=== PATIENT | female | born 1980 | race Caucasian/White ===

== ENCOUNTER 2024-04-17 18:39 | Emergency (ER) | payer OTHER, SELFPAY ==
--- NOTE | ~2024-04-17 | XR_ITS ---
CLINICAL HISTORY: pain 4 view left knee Comparison: None Findings: No fractures or dislocations. No significant loss of joint space, osteophytes, or erosions. No joint effusion. No radiopaque foreign body. IMPRESSION: 1. No acute findings. This document has been electronically signed by: Lashawn Carranza MD on 04/17/2024 21:20:47
[2024-04-17 19:55] VITALS: BP 138/64; PULSE 77; RESP 18; TEMP 36.6; O2SAT 100; BMI 37.6
--- NOTE | 2024-04-17 19:57 | ED_ITS ---
HPI - Extremity Problem General Chief complaint: Extremity Problem Stated complaint: L knee pain & swollen Time Seen by Provider: 04/17/24 22:04 Source: patient Limitations: no limitations History of Present Illness ED Provider: Christen Guzmán PA-C HPI Narrative: 44-year-old female who is morbidly obese presents with atraumatic left knee pain x1 week. Denies fever, swelling, warmth or redness. Related Data Allergies Allergy/AdvReac Type Severity Reaction Status Date / Time No Known Allergies Allergy Verified 04/17/24 19:57 Review of Systems Review of Systems: Yes all other systems are reviewed and are negative Constitutional: Constitutional: Denies fatigue and Denies fever(s) Cardiovascular: Cardiovascular: Denies chest pain and Denies dyspnea Respiratory: Respiratory: Denies cough and Denies dyspnea Gastrointestinal: Gastrointestinal: Denies abdominal pain Musculoskeletal: Musculoskeletal: Reports arthralgias and Denies joint swelling Endocrine: Endocrine: Denies fatigue PMFSH Past Medical History Attestation statement: The following information was validated with the patient. Social History Social History Advance Directives: No Advance Directives Information Provided: Yes Physical Exam Vital Signs: Vital Signs: Last Vital Signs Temp 98.1 F 04/17/24 22:56 Pulse 82 04/17/24 22:56 Resp 19 04/17/24 22:56 BP 115/63 04/17/24 22:56 Pulse Ox 99 04/17/24 22:56 O2 Del Method Room Air 04/17/24 22:56 BMI result Body Mass Index 37.6 Const: Other: Alert, appears older than stated age Orientation/consciousness: patient oriented x3 Resp: Effort & Inspection: normal respiratory effort Cardio: Other: Normal peripheral perfusion no pedal edema Skin: Other: Warm dry no rash Neuro: General: patient oriented x3, no focal motor deficits and CN's II-XI intact bilaterally Extrem: Other: No overlying erythema warmth or redness of the left knee, full flexion and extension, no deformity Psych: Other: Cooperative Course Course Course Narrative: 44 yo female with no PMH here with c/o L knee pain hurts to move and walk. She states started last Wednesday. No recent travel or procedures. She notes she has injured it before. Pain is around the entire knee. At this time xray ordered. this is a RAPID medical screening exam the rest of the history and physical exam is to be done by the main provider. Medical Decision Making Medical Decision Making [facility] Narrative: 44-year-old female who is morbidly obese presents with atraumatic left knee pain x1 week. Denies fever, swelling, warmth or redness. Problem: Obesity History: Per patient I have considered the following differential diagnoses: Fracture, dislocation, septic joint, Garay cyst, DVT Plan: X-ray obtained from triage it is normal. There was no evidence of infection on exam, she has full flexion and extension. There was no unilateral calf pain or swelling to suggest a DVT. She can follow up with the primary care provider. I have independently reviewed the following tests: X-ray left knee:Findings: No fractures or dislocations. No significant loss of joint space, osteophytes, or erosions. No joint effusion. No radiopaque foreign body. IMPRESSION: 1. No acute findings. This document has been electronically signed by: Lashawn Carranza MD on 04/17/2024 21:20:47 Discharge Plan Discharge Clinical Impression: Knee pain, left Patient Disposition: Home, Self-Care Instructions: Knee Pain (ED) Additional Instructions: The x-ray of the knee is unremarkable. There was no fracture there was no dislocation you have normal arthritis. Be sure to wear a supportive shoe such as a sneaker that supports the arch, this may help your discomfort. You can use wyrb-bdq-aydrlze ibuprofen 600 mg taken every 6 hours alternated with kvtq-jsa-rzbiddg Tylenol 1000 mg taken every 8 hours for your pain. If your symptoms persist you need to follow up with an program eligibility specialist, your primary care provider can help you with this process. Print Language: Macedonian
[2024-04-17 22:56] VITALS: BP 115/63; PULSE 82; RESP 19; TEMP 36.7; O2SAT 99
[2024-04-17 23:40] VITALS: BP 115/63; PULSE 82; RESP 19; TEMP 36.7; O2SAT 99
== END 2024-04-17 23:40 | disposition home or self-care (01) ==
PROVIDERS: Emergency Provider Emergency Medicine
DX: M25.562 Pain in left knee (principal); E66.9 Obesity, unspecified; Z68.37 Body mass index [BMI] 37.0-37.9, adult
CPT/HCPCS: 73564; 99282; 99283

== ENCOUNTER → 2024-04-17 19:56 | Outpatient (BNV) | payer OTHER, SELFPAY | PROVIDERS: Visit Provider Radiology Diagnostic Radiology | DX: M25.562 Pain in left knee (principal) | CPT/HCPCS: 73564 ==

== ENCOUNTER 2024-05-08 21:13 | Emergency (ER) | payer MEDICAID, SELFPAY ==
--- NOTE | ~2024-05-08 | XR_ITS ---
CLINICAL HISTORY: fall 3 views lumbar spine Comparison: None Findings: Transitional vertebral anatomy. Lumbarization of the S1 for the purposes of this dictation only. Normal heights of 5 lumbar type vertebrae by this numbering system. Lucency of right L1 transverse process is likely projectional on the frontal image. Degenerative changes include facet arthropathy particularly in the lower lumbar spine; greater than expected for age. No significant listhesis. L5 5 pars are partly obscured without definite lysis. Sacrum and SI joints are mostly obscured. Phleboliths are noted in the pelvis. Degenerative changes include the partially imaged hips. IMPRESSION: 1. No acute compression fracture of the 5 lumbar vertebrae. 2. 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 3. Lower lumbar facet arthropathy. This document has been electronically signed by: Perez Lombardi MD on 05/08/2024 22:57:39
[2024-05-08 21:39] VITALS: BP 132/82; PULSE 83; RESP 20; TEMP 37.2; O2SAT 98; BMI 35.4
[2024-05-08 23:03] VITALS: BP 134/79; PULSE 88; RESP 18; TEMP 37.3; O2SAT 100
== END 2024-05-09 00:22 | disposition left against medical advice (07) ==
PROVIDERS: Emergency Provider Emergency Medicine; PCP Family Medicine
DX: R51.9 Headache, unspecified (principal); M54.50 Low back pain, unspecified
CPT/HCPCS: 72100; 99281; 99283

== ENCOUNTER → 2024-05-08 22:10 | Outpatient (BNV) | payer OTHER, SELFPAY | PROVIDERS: Visit Provider Radiology Neuroradiology | DX: M47.816 Spondylosis without myelopathy or radiculopathy, lumbar region (principal) | CPT/HCPCS: 72100 ==

== ENCOUNTER 2025-02-28 18:16 | Emergency (ER) | payer SELFPAY ==
--- NOTE | ~2025-02-28 | XR_ITS ---
CLINICAL HISTORY: FOOSH 3 view right hand Comparison: None provided Findings: Bones intact. No dislocations. No significant arthritic change. No erosions. No radiopaque foreign body. Negative ulnar variance. IMPRESSION: 1. No acute osseous injury. This document has been electronically signed by: Marcus Mcdonald MD on 02/28/2025 18:58:14
--- NOTE | ~2025-02-28 | XR_ITS ---
CLINICAL HISTORY: fall on knee 4 view left knee Comparison: CR - XR KNEE LT 4V - 04/17/24 20:16 EST Findings: Bones intact. No dislocations. No significant loss of joint space, osteophytes, or erosions. No joint effusion. No radiopaque foreign body. IMPRESSION: 1. No acute findings. This document has been electronically signed by: Marcus Mcdonald MD on 02/28/2025 18:59:26
[2025-02-28 18:23] VITALS: BP 129/67; PULSE 85; RESP 18; TEMP 36.3; O2SAT 96; BMI 40.7
--- NOTE | 2025-02-28 18:23 | ED.LOWEXIN ---
HPI - Extremity Injury (Lower) General Chief Complaint: Extremity Injury, Lower Stated Complaint: Injury Time Seen by Provider: 02/28/25 18:25 Source: patient, RN notes reviewed and old records reviewed Mode of arrival: ambulatory History of Present Illness ED Provider: Amy Morley PA-C HPI Narrative: 44-year-old female with no significant past medical history presenting to the ED complaining of right hand and left knee pain s/p mechanical trip and fall over a curb this morning. States fell directly on left knee/right hand, denies head trauma or LOC. Denies symptoms prior to fall. Denies numbness, tingling, weakness Related Data Allergies Allergy/AdvReac Type Severity Reaction Status Date / Time No Known Allergies Allergy Verified 02/28/25 18:26 Review of Systems Review of Systems: Yes all other systems are reviewed and are negative Constitutional: Constitutional: Reports as per [facility] Past Medical History Attestation statement: The following information was validated with the patient. Source: old records reviewed Social History Social History Advance Directives: No Advance Directives Information Provided: No Do you have a plan to hurt others: No Plan Physical Exam Vital Signs: Vital Signs: Last Vital Signs Temp 97.3 F 02/28/25 21:05 Pulse 85 02/28/25 21:05 Resp 18 02/28/25 21:05 BP 129/67 02/28/25 21:05 Pulse Ox 96 02/28/25 21:05 O2 Del Method Room Air 02/28/25 21:05 BMI result Body Mass Index 40.7 Const: General: cooperative, healthy appearing and no acute distress Orientation/consciousness: patient oriented x3 Limitations: no limitations HEENT: Head: Yes normal to inspection and Yes atraumatic Ears: hearing grossly normal bilaterally General nose exam: Normal external nose present Face and sinus: Yes normal facial exam Eyes: General: appearance normal, both eyes and all related structures EOM: EOMs intact bilaterally Neck: Neck: Yes normal visual inspection and Yes no meningeal signs Resp: Effort & Inspection: normal respiratory effort and no respiratory distress Cardio: Rate: regular rate Skin: Rashes: no rashes Wounds: no wounds Neuro: General: patient oriented x3, tone normal and no meningeal signs Cranial nerves: Yes CN's II-XII intact bilaterally Gait exam (Neuro): Normal gait present Extrem: Other: right hand palmar aspect with superficial abrasion, +ttp. Wrist/digits nontender, no snuffbox ttp. FROM intact to digits. Tlkfwt-yn-[id number] opposition intact Left knee with mild erythema/abrasion. Tender to palpation. Range of motion intact with discomfort. Neurovascularly intact distally. Course Course Course Narrative: -X-rays unremarkable > [place] wrap applied for stability/comfort Results discussed with patient including worrisome signs and symptoms and strict return precautions, and when to return to the emergency department. They verbalized understanding and feel safe for discharge at this time. Medical Decision Making Medical Decision Making MDM Narrative: 44-year-old female with no significant past medical history presenting to the ED complaining of right hand and left knee pain s/p mechanical trip and fall over a curb this morning. On exam vital signs stable, NAD, nontoxic appearing, physical exam as noted above. Concern for sprain. Rule out fracture. No evidence cellulitis. No snuffbox tenderness Plan: X-rays Please refer to course for remaining clinical decision making, interpretation of labs/imaging results, and discussions with consultants and/or family members. Differential Diagnosis Differential Diagnoses: The differential diagnosis associated with the presentation includes As above Independent Interpretation I performed an independent interpretation of an: Plain X-Ray Radiology Impression Discussion of test interpretation with radiology: I have reviewed the radiologist's reading. External Record Review External record reviewed: Inpatient record, Office record, Outpatient record, Prior outpatient labs, Prior outpatient radiology, Primary care record and Outside ED record Tests considered The following testing was considered but not selected: As above Prescription Management I considered prescription management with: Pain Medication Chronic Conditions Patient?s care impacted by: Other Social Determinants Patient?s care significantly limited by Social Determinants of Health including: Other Social Determinant of Health Discharge Plan Discharge Clinical Impression: Knee sprain, Hand injury Patient Disposition: Home, Self-Care Instructions: Knee Sprain (DC) Additional Instructions: Your x-rays unremarkable. You likely sprained your knee/hand Wear [place] wrap for comfort and stability Ice and elevate Take Tylenol / ibuprofen for pain Follow up with your primary care doctor If symptoms persist or worsen/pain becomes unbearable, you are unable to walk or area looks infected return to the ED Referrals: Physician,None [Primary Care Provider, Medical] - 1 week Interventions: ED Discharge Assessment Last Done: 02/28/25 21:05 Discharge Date/Time: 02/28/25 21:06 Print Language: Iranian
--- NOTE | 2025-02-28 18:33 | PC.NURSE ---
patient was stepping onto curb this morning around 0630 when she tripped, falling on her right hand and left knee. patient did not hit head or lose consciousness. patient denies symptoms prior to fall. patient has a bruise to the palm of her right hand, no noted swelling/redness to left knee.
--- OUTSIDE RECORDS SUMMARY | 2025-02-28 18:46 | XMS_ITS | Clinical Summary ---
Author Organization 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 Not on veronica e 11/13/2023 Are you concerned about learning? Not on file 11/13/2023 No 11/13/2023 No 11/13/2023 Digital Access Answer Date Recorded No 11/13/2023 No 11/13/2023 Reliable internet access at home? Not on file 11/13/2023 Device with a working camera? 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 It is not the complete legal health record.[facility]
[2025-02-28 21:05] VITALS: BP 129/67; PULSE 85; RESP 18; TEMP 36.3; O2SAT 96
== END 2025-02-28 21:06 | disposition home or self-care (01) ==
PROVIDERS: Emergency Provider Student in an Organized Health Care Education/Training Program
DX: S83.92XA Sprain of unspecified site of left knee, initial encounter (principal); S60.511A Abrasion of right hand, initial encounter; W10.1XXA Fall (on)(from) sidewalk curb, initial encounter; Y93.9 Activity, unspecified; Y92.410 Unspecified street and highway as the place of occurrence of the external cause; Y99.9 Unspecified external cause status
CPT/HCPCS: 73130; 73564; 99283

== ENCOUNTER → 2025-02-28 18:23 | Outpatient (BNV) | payer SELFPAY | PROVIDERS: Emergency Provider Student in an Organized Health Care Education/Training Program; Visit Provider Radiology Diagnostic Radiology | DX: Z04.3 Encounter for examination and observation following other accident (principal) | CPT/HCPCS: 73130; 73564 ==

== ENCOUNTER 2025-03-10 17:28 | Emergency (ER) | payer SELFPAY ==
--- NOTE | ~2025-03-10 | XR_ITS ---
CLINICAL HISTORY: R shoulder pain s p fall 3 view right shoulder Comparison: None provided Findings: No fractures or dislocations. No significant arthritic change. No erosions. No radiopaque foreign body. IMPRESSION: 1. No acute fracture. This document has been electronically signed by: Rachael Magana MD on 03/10/2025 18:22:11
[2025-03-10 17:39] VITALS: BP 140/82; PULSE 94; RESP 18; TEMP 36.6; O2SAT 98; BMI 40.6
--- NOTE | 2025-03-10 17:39 | ED_ITS ---
HPI - Extremity Injury (Upper) General Chief Complaint: Extremity Injury, Upper Stated Complaint: shoulder pain Time Seen by Provider: 03/10/25 18:25 Source: patient Mode of arrival: ambulatory Limitations: no limitations History of Present Illness ED Provider: ANY LAINEZ PA-C HPI narrative: 44 year old female presents to the ED today for evaluation of right shoulder pain s/p fall onto outstretched right arm approximately a week and a half ago. No head strike or LOC. No thinners. Reports pain to the front of her right shoulder, worse with movement. Denies radiation. Denies numbnes s/tingling/weakness. denies right hand/wrist/elbow pain. She has not been taking anything for the pain at home. Related Data Allergies Allergy/AdvReac Type Severity Reaction Status Date / Time No Known Allergies Allergy Verified 03/10/25 17:40 Review of Systems Review of Systems: Yes all other systems are reviewed and are negative PMFSH Past Medical History Attestation statement: The following information was validated with the patient. Source: old records reviewed and nursing notes reviewed Social History Social History Advance Directives: No Advance Directives Information Provided: No Do you have a plan to hurt others: No Plan Physical Exam Vital Signs: Vital Signs: Last Vital Signs Temp 98 F 03/10/25 17:39 Pulse 94 03/10/25 17:39 Resp 18 03/10/25 17:39 BP 140/82 H 03/10/25 17:39 Pulse Ox 98 03/10/25 17:39 O2 Del Method Room Air 03/10/25 17:39 BMI result Body Mass Index 40.6 hypertensive, vitals are otherwise wnl General: Well appearing, in no acute distress. Skin: Warm, dry, intact. No rashes or lesions. Head: Normocephalic, atraumatic. EENT: Hearing is intact b/l. Conjunctiva clear. PERRLA. EOM intact. Moist mucous membranes.? Cardiac: Chest wall symmetric. RRR Lungs: Normal respiratory effort without accessory muscle use. CTA bilaterally Ext: +no overlying skin changes/deformity to R shoulder. FROM intact with active and passive ROM, reported pain when abducting/extending to 45 degrees. CMS intact distally. ttp over anterior right shoulder/deltoid. no palpable deformities, crepitus, step offs. Neuro: AOx3. Normal speech. Ambulating with steady gait. Course Course Course Narrative: This is a Rapid Medical Examination (RME) performed by Tutu Lainez PA-C in triage. Full HPI, ROS, assessment and treatment plan per primary provider in the Main ED. Hx: 44 yo F here w/ right shoulder pain which began 1-2 days after a fall occurring 2 weeks ago. Plan: xrs Reevaluation(s) Reevaluation #1: xrs right shoulder negative. Concern for rotator cuff injury. Placed in sling. Medicated with Tylenol. Advised outpatient follow up. Patient has remained stable throughout ED visit today. Discussed worrisome signs and symptoms and when to return to the ED. All questions answered at this time. Patient is agreeable with disposition and stable for discharge. Medical Decision Making Medical Decision Making MDM Narrative: 44 year old female presents to the ED today for evaluation of right shoulder pain s/p fall onto outstretched right arm approximately a week and a half ago. hypertensive, vitals are otherwise wnl. she is well appearing, in NAD. on exam, no overlying skin changes/deformity to R shoulder. FROM intact with active and passive ROM, reported pain when abducting/extending to 45 degrees. CMS intact distally. ttp over anterior right shoulder/deltoid. no palpable deformities, crepitus, step offs. Differential diagnosis includes msk sprain/strain, fracture, dislocation, tendonitis, bursitis. Plan for imaging, tylenol, disposition. Differential Diagnosis Differential Diagnoses: The differential diagnosis associated with the presentation includes as above. Admission/Observation not indicated. Independent Interpretation I performed an independent interpretation of an: Plain X-Ray Interpretation: xr right shoulder without fracture Radiology Impression Discussion of test interpretation with radiology: I have reviewed the radiologist's reading. Radiologist Impression: Procedure(s): XR shoulder RT min 2V Accession Number(s): [id number] cc: Physician,None ; Any Lainez~ Reason for Exam: R shoulder pain s/p fall CLINICAL HISTORY: R shoulder pain s p fall 3 view right shoulder Comparison: None provided Findings: No fractures or dislocations. No significant arthritic change. No erosions. No radiopaque foreign body. IMPRESSION: 1. No acute fracture. This document has been electronically signed by: Rachael Magana MD on 03/10/2025 18:22:11 External Record Review External record reviewed: Inpatient record Prescription Management I considered prescription management with: Pain Medication Social Determinants Patient?s care significantly limited by Social Determinants of Health including: Other Social Determinant of Health Procedures Orthopedic Splinting/Casting Injury #1: Side: right Upper Extremity Injury Location: shoulder Upper Extremity Immobilizer: sling/shoulder immobilizer Critical Care Time Critical Care Time Critical Care Time: No Discharge Plan Discharge Clinical Impression: Injury of right rotator cuff Patient Disposition: Home, Self-Care Instructions: Rotator Cuff Injury (ED), Rotator Cuff Injury Exercises (DC) Additional Instructions: You were evaluated in the ED today for right shoulder pain. Your x-rays do not demonstrate fracture. You likely have a rotator cuff injury. You may take Tylenol and Motrin at home as needed for pain/discomfort. We have placed you in a sling. As discussed, engage in gentle usxzs-bu-cgcwou throughout the day to prevent frozen shoulder. Follow up with PCP/ortho, you may require an outpatient MRI. Return with any new or worsening symptoms. In the case of an emergency call 911. Referrals: [facility] [Provider Group, Family Practice] [facility] [Provider Group] Referral Note: Rotator cuff injury Physician,None [Primary Care Provider, Medical] Print Language: Belarusian
--- OUTSIDE RECORDS SUMMARY | 2025-03-10 18:56 | XMS_ITS | Clinical Summary ---
Author Organization [facility] Address [address] [place], [place] [id number] Phone Care Team Providers Care Liner Helper Name Role Phone Pcp, Unknown Primary Care [...] file Medical Devices Not on file Insurance [facility] [place] [facility] Care Teams Liner Helper Relationship Specialty Start Date End Date Pcp, Unknown PCP - General 07/29/23 Additional Source Comments The information contained in this document represents components of the legal health record. It is not the complete legal health record.[facility]
[2025-03-10 19:10] VITALS: BP 140/82; PULSE 94; RESP 18; TEMP 36.6; O2SAT 98
== END 2025-03-10 19:10 | disposition home or self-care (01) ==
PROVIDERS: Emergency Provider Emergency Medicine Emergency Medical Services
DX: S49.91XA Unspecified injury of right shoulder and upper arm, initial encounter (principal); W19.XXXA Unspecified fall, initial encounter; Y93.9 Activity, unspecified; Y92.9 Unspecified place or not applicable
CPT/HCPCS: 73030; 99283

== ENCOUNTER → 2025-03-10 17:40 | Outpatient (BNV) | payer SELFPAY | PROVIDERS: Emergency Provider Emergency Medicine Emergency Medical Services; Visit Provider Student in an Organized Health Care Education/Training Program | DX: M25.511 Pain in right shoulder (principal); Z04.3 Encounter for examination and observation following other accident | CPT/HCPCS: 73030 ==